=== PATIENT | female | born 1965 | race Caucasian/White ===

== ENCOUNTER 2016-08-13 19:33 | Emergency (ER) | payer BC ==
[~2016-08-13] VITALS: Ht 149.9 cm; Wt 49.4 kg
[~2016-08-13 19:33] MED LIST: AZIT250T81 PO
--- OUTSIDE RECORDS SUMMARY | 2016-08-13 19:36 | XMS REPORT | Summary of Care ---
Author Author Pushpa Hudson, [place] Organization Unknown Address [address], [place] [id number] Phone Unavailable Care Team Providers Care Tannery Gummer Name Role Phone Unavailable Unavailable Functional Status Functional Status Health Issues Name Dates Details Functional status health issues are not documented Status: Cognitive Status Health Issues Name Dates Details Cognitive status health issues are not documented Status: Problems Name Dates Details Postmenopausal (V49.81, Z78.0) Status: Active Well woman exam with routine gynecological exam (V72.31, Z01.419) Status: Active Medications Name Dates Details No Reported Medications Refills: 0 Active Allergies and Adverse Reactions Name Dates Details Penicillins Status: Active Past Medical History Name Dates Details History of vaginal delivery (V13.29) Status: Resolved History of Vulvovaginitis (616.10, N76.0) Status: Resolved Procedures Procedure Dates Details History of Hysterectomy Procedures not documented Immunization Name Dates Details Immunizations not documented Family History Unknown Family Member Name Dates Details No pertinent family history Comments: Other Status: Active Social History Smoking StatusUnknown if ever smoked Vital Signs Date Test Result Details No Known Vitals to report Results Date Description Value Details 21-Sep-2015 16:46 MAMMOGRAM-SCREENING Comments: Exam Date: 09/21/2015 14: 44Dictation Date: 09/21/2015 16:46 XM SCREENING (Better) Plan of Care Planned Observations Name Dates Details Planned Goals not documented Goal Planned Encounters Appointment; Provider: Schedule Radiology On 25-Sep-2016 15:20 Appointment; Provider: Oxana Barrow On 14:30 Appointment; Provider: Schedule Radiology On 21-Sep-2015 15:20 Instructions Instructions not documented Encounters Appointment; Oxana Barrow Encounter Diagnosis: Problem not documented On 23-Aug-2014 14:00
[2016-08-13 19:46] VITALS: BP 108/58
[2016-08-13] MEDS ORDERED: INSU100I9 SC (19:46)
--- NOTE | 2016-08-14 08:54 | Diagnostic Imaging Report ---
INDICATION: Constipation. FINDINGS: Upright chest shows the lungs to be clear. There is no free air under the diaphragm. There is large amount of stool present in the colon from the cecum to the rectum. The small bowel is not distended. There is no organomegaly or pathologic calcification. IMPRESSION: Findings of constipation. Dictated by: Dictated on workstation # [id number]
== END 2016-08-13 21:07 | disposition home or self-care (01) ==
LOC: ED 19:33
DX: K59.00 Constipation, unspecified (principal)
CPT/HCPCS: 74022; 99282

== ENCOUNTER → 2016-08-27 | Outpatient (CLI) | payer BC ==
[~2016-08-27] MED LIST changes: +INSU100I9 SC
[2016-08-27 14:10] VITALS: BP 115/75
--- NOTE | 2016-08-27 14:10 | Urgent Care T Sheet Gen (E) ---
Intake General Temperature (Fahrenheit): 99.1 Pulse: 93 Blood Pressure Systolic: 115 Blood Pressure Diastolic: 75 Respirations: 20 SPO2: 100 Description of Symptoms Patient presents with illness since , which has been worsening with time. Notes nasal congestion, malaise, fever/chills and cough. States her throat is sore due to constant coughing. Been taking Advil regularly for aches and fever. Tried some Sary Voorhees cold without improvement. States she feels awful and her usual colds don't effect her this way which is what prompted her to be seen. History of Present Illness Allergies: Coded Allergies: Penicillins (Verified Allergy, Intermediate, 08/13/16) Home Meds Reported Medications Insulin Lispro (Insulin Humalog)100 Unit/1 Ml Insuln.[id number] Unit SC PC 08/13/16 Respiratory Constitutional Symptoms: Chills Fever Malaise EENTM: Nose Congestion Throat pain Respiratory: CoughNo Short of breath, No Wheezing Cardiovascular: No symptoms reported Neurological: Headache All Other Systems Reviewed Remaining Systems: All other systems reviewed with negative findings Past Buanqsv-Nrgofl-Nnebsb Hx Patient's Social History Alcohol Use: Denies Use Smoking Status: Never smoker Recent foreign travel: No Surgeries/Hospitalizations Hospitalization/Surgery Hx: Hysterectomy Respiratory Respiratory History: None Cardiovascular Cardiovascular History: None Reproductive System Sexually Transmitted Diseases: No Gastrointestinal GI/Endocrine History: Anemia Diabetes Diabetes: IDDM HEENT Impaired Vision: Glasses Hearing Impaired: None Psychosocial Behavior Disorders: None Physical Exam Physical Exam General Appearance: WD/WN No apparent distress (patient appears ill) Eyes, Ears, Nose, Throat Ex: TMs normal Pharyngeal erythema (streaky, irritated. thick PND) Other (red, swollen nasal turbinates with purulent drainage) Neck Exam: SuppleNo Lymphadenopathy Respiratory Exam: Lungs clear Normal breath sounds (deep cough throughout exam.) Cardiovascular Exam: Regular rate, rhythm Departure Urgent Care Impression Impression: Primary Impression: Sinusitis Qualified Code: J01.00 - Acute maxillary sinusitis, unspecified Departure Disposition: HOME OR SELF-CARE Condition: Stable Referrals: FRANTZ LI MD (PCP) Additional Instructions: Patient appears to have a sinus infection I have started her on Zpak for treatment May DC the cold meds but recommend continuing the Advil for fever/aches Rest. Fluids Return as needed Patient understands DC instructions. All questions were answered. Scripts Azithromycin (Zithromax Z-Davy)6 Tab/Pkt [id number] Mg PO SEE INSTRUCTIONS #6 TAB Ref 0 Day One: Take 2 tablets by mouth Days Two-Five: Take 1 tablet by mouth Prov:CATHY LAZO 08/27/16 End of report . CATHY LAZO August 27, 2016 14:10
== END ==
LOC: MHUC 13:48
PROVIDERS: ATTEND Physician Assistant
DX: J01.00 Acute maxillary sinusitis, unspecified (principal)
CPT/HCPCS: 99213

== ENCOUNTER 2016-09-08 10:18 | Emergency (ER) | payer BC ==
[~2016-09-08] VITALS: Ht 149.9 cm; Wt 48.0 kg
--- OUTSIDE RECORDS SUMMARY | 2016-09-08 10:22 | XMS REPORT | Continuity of Care Document ---
Author Author [facility] Address Unknown Phone Unavailable Care Team Providers Care Head Of Sales And Marketing Name Role Phone FRANTZ LI MD PCP [phone] Insurance Providers Payer Name Policy Number Subscriber Name Relationship [facility] [id number] Logan Lujan 18 Self / Same As Patient Advance Directives Directive Response Recorded Date/Time Advanced Directives No 08/13/16 7:46pm Chief Complaint and Reason for Visit Chief Complaint GI Complaint Reason for Visit Constipation Problems Active Problems Medical Problem Onset Date Status Constipation Unknown Acute Diabetes mellitus Unknown Acute Right otitis externa Unknown Acute Sinusitis Unknown Acute Medications Current Home Medications Medication Dose Units Route Directions Days/Qty Instructions Start Date Insulin Lispro (Humalog) 100 Unit/1 Ml 300 Unit SUBCUTANEOUS After Meals 08/13/16 Past Home Medications Medication Directions Ordered Status Azithromycin 6 Tab/Pkt Tablet, 250 Mg Oral See Instructions 03/29/16 Discontinued Social History Query Response Start Date Stop Date Smoking Status Never smoker Hospital Discharge Instructions No hospital discharge instructions. Plan of Care Discharge Date 08/13/16 9:07pm Disposition 01 HOME OR SELF-CARE Instructions/Education Provided Polyethylene Glycol 3350 Constipation in Adults Prescriptions See Medication Section Referrals FRANTZ LI MD - Additional Instructions/Education You have constipation, and need to take Miralax 17 grams daily until your bowels are working well. Drink plenty of fluids, walk and be active, take fiber supplements and eat a high fiber diet. See your doctor in 2 days if no bowel results. Schedule a colonoscopy in the next month. Return to the ER if you get abdominal pain or vomiting or fever. Some of your test results may not be complete prior to your leaving the Emergency Department. The Emergency Department is not authorized to give test results over the phone. Please contact the doctor's office listed in this packet of information for your final results. Follow up with your primary care physician or return to the Emergency Department for worsening or worrisome symptoms. * Emergency Department phone number: [phone], x [phone]* MEDICAL RECORD If you need copies of your X-rays, call [phone]. If you need copies of your medical record, including lab results, a signed authorization for release of records will be required. A telephone call for release of Health Information is not allowed. BILLING Billing can sometimes be confusing and frustrating. To help avoid confusion in the future, please take a moment to acquaint yourself with the billing parties for services. SERVICE BILLING [employer]AT Emergency Room Services [facility] Physician Services [facility] X-rays [facility] Patients will receive bills for services from the appropriate provider. If you have any questions about your [facility] bill, our staff will be happy to assist you. Please call [phone], and ask for the billing department. THANK YOU for choosing [facility] as your emergency care provider! Care Plan and Goals ~~Discharge Care Plan~~ Problem: Nausea, vomiting or diarrhea Goal: Decrease in nausea, vomiting or diarrhea Instructions: Encourage fluids approximately 6-8 glasses of water or noncarbonated fluids. Take medication(s) as directed. Follow home discharge instructions. Follow up with primary care physicians or aircraft steel fabricator as directed. Functional Status No functional status results. Allergies, Adverse Reactions, Alerts Allergen Type Severity Reaction Status Last Updated Penicillin Allergy Intermediate Active 08/13/16 Immunizations No immunization records. Vital Signs Acute Vital Signs Vital Response Date/Time Temperature (Fahrenheit) 98.6 08/13/2016 7:46pm Pulse 100 bpm 08/13/2016 7:46pm Respirations 20 08/13/2016 7:46pm Height 4 ft 11 in Weight 108 lb Body Mass Index 21.0 kg/m^2 Results No known relevant diagnostic tests, laboratory data and/or discharge summary. Procedures No known history of procedures. Encounters Encounter Location Arrival/Admit Date Discharge/Depart Date Attending Provider Departed Emergency Room [facility] 08/13/16 7:33pm 08/13/16 9:07pm KENTRELL TAMEZ DO Recent Diagnosis
--- NOTE | 2016-09-08 10:35 | NUR ---
Patient report received from Triage Nurse, Sumi Smith, RN
[2016-09-08] MEDS ORDERED: LIDOCAINE JELLY 2% (XYLOCAINE) 30 ML TUBE TOP ONE (10:55)
--- NOTE | 2016-09-08 11:25 | NUR ---
Digital rectal exam by Dr. Underwood using the Lidocaine he previously ordered. Hemoccult specimen obtained. Spouse remained in room during exam. Pt tolerated exam well.
--- NOTE | 2016-09-08 11:35 | NUR ---
"Fleets" Mineral Oil enema heel reducer per rectum. Fluid went in easily and pt tolerated well. Spouse remains in room during procedure.
--- NOTE | 2016-09-08 11:41 | Diagnostic Imaging Report ---
EXAMINATION: Abdominal radiographs, single supine view. DATE: September 08, 2016. CLINICAL INDICATION: 51-year-old female, constipation. COMPARISON: August 13, 2016. COMMENTS: The upper abdomen is not entirely included in the [id number]. There is a moderate to large volume stool throughout the colon. There are gas-filled segments of large bowel which are mildly distended. There are no identified abnormally gas distended segments of small bowel. There is no identified abnormal radiodensity overlying the expected positions of the kidneys or ureters. There are pelvic calcifications with lucent centers which likely relate to phleboliths. IMPRESSION: 1. Moderate to large-volume colonic stool. 2. No identified acute abdominal radiographic abnormality. Dictated by: Dictated on workstation # [id number]
--- NOTE | 2016-09-08 11:48 | NUR ---
Patient still lying on her Lt side, reports she having some "spasms" but is doing "okay".
--- NOTE | 2016-09-08 11:55 | NUR ---
Patient up to toilet - only passes clear liquid. Dr. Underwood reported results.
--- NOTE | 2016-09-08 12:15 | NUR ---
Soapsuds enema 150 ml with tepid water attempted. Pt unable to hold full amt - had some leakage in bed but attempting to hold remainder as long as possible. Dr. Underwood informed of results so far.
--- NOTE | 2016-09-08 13:10 | NUR ---
Dr. Underwood has manually removed some stool. Pt ready for 2nd Soap-Suds enema.
--- NOTE | 2016-09-08 13:12 | NUR ---
Pt as been up to toilet and had approx 3/4 cup of soft-formed, brown-colored stool. Reports intermittant cramping continues.
--- NOTE | 2016-09-08 13:21 | NUR ---
Patient has had 2nd soapsuds enema, was able to hold more liquid without leakage around enema tube.
--- NOTE | 2016-09-08 14:01 | NUR ---
NO RESULTS FROM LAST ENEMA. PT HAD ALL FLUID LEAK OUT ONTO CHUX ON BED. PT GIVEN CLEAN GOWN AND CHUX. RESULTS REPORTED TO DR. TAMEZ.
--- NOTE | 2016-09-08 14:20 | NUR ---
Patient has been up to toilet and had additional small amt of stool, has less rectal pressure, and is now ready to go home.
[2016-09-08 14:37] VITALS: BP 108/49
== END 2016-09-08 14:39 | disposition home or self-care (01) ==
LOC: ED 10:19
DX: K59.09 Other constipation (principal)
CPT/HCPCS: 74000; 99283; 99284

== ENCOUNTER → 2016-09-08 | Outpatient (CLI) | payer BC ==
[2016-09-08 10:21] VITALS: BP 106/71
--- NOTE | 2016-09-08 10:21 | Urgent Care T Sheet Gen (E) ---
Intake General Temperature (Fahrenheit): 98.9 Pulse: 99 Blood Pressure Systolic: 106 Blood Pressure Diastolic: 71 Respirations: 18 SPO2: 96 Chief Complaint: UC GI Complaint Description of Symptoms 51 year old female presents accompanied by with constipation and abdominal cramping. States she had constipation prior to and was seen in ED. She took Miralax and "cleaned out". She has been taking Miralax daily since but no bowel movement since August 20. She feels like her rectum is having spasms. Source: Patient Exam Limitations: No limitations History of Present Illness Onset & Duration: Weeks (2) Timing: Worse Severity: Severe Associated Symptoms: Denies symptoms Recent Trauma: No Similar Sympotms Previously: Yes Allergies: Coded Allergies: Penicillins (Verified Allergy, Intermediate, 08/13/16) Home Meds Active Scripts Azithromycin (Zithromax Z-Davy)6 Tab/Pkt [id number] Mg PO SEE INSTRUCTIONS #6 TAB Ref 0 Day One: Take 2 tablets by mouth Days Two-Five: Take 1 tablet by mouth Prov:CATHY LAZO 08/27/16 Reported Medications Insulin Lispro (Insulin Humalog)100 Unit/1 Ml Insuln.oih471 Unit SC PC 08/13/16 Respiratory Constitutional Symptoms: No syptoms reported Gastrointestinal/Abdominal: Constipation Other (Generalized abdominal cramping ) All Other Systems Reviewed Remaining Systems: All other systems reviewed with negative findings Past Uymuvfo-Ixwhsp-Tcmzsk Hx Patient's Social History Alcohol Use: Denies Use Smoking Status: Never smoker Recent foreign travel: No Surgeries/Hospitalizations Hospitalization/Surgery Hx: Hysterectomy Respiratory Respiratory History: None Cardiovascular Cardiovascular History: None Reproductive System Sexually Transmitted Diseases: No Gastrointestinal GI/Endocrine History: Anemia Diabetes Diabetes: IDDM HEENT Impaired Vision: Glasses Hearing Impaired: None Psychosocial Behavior Disorders: None Physical Exam Physical Exam General Appearance: WD/WN Moderate distress (Unable to sit upright and visibly uncomfortable) Departure Urgent Care Impression Chief Complaint: UC GI Complaint Impression: Primary Impression: Constipation Qualified Code: K59.00 - Constipation, unspecified Departure Disposition: [facility] - ACUTE Departed Disposition: To [facility] ED Additional Disposition Comment Advised Pt that she needs a KUB and further evaluation. Advised that she would be better served in Emergency Department. Pt verbalized understanding. will drive pt in private car. Pt's vital signs stable. Condition: Stable Referrals: FRNATZ LI MD (PCP) End of report . KENDY TORRES SURVEYING TECHNICIAN September 08, 2016 10:21
== END ==
LOC: MHUC 10:02
PROVIDERS: ATTEND Nurse Practitioner Family
DX: K59.00 Constipation, unspecified (principal)